=== PATIENT | male | born 1995 | race American Indian/Alaskan Native ===

== ENCOUNTER 2017-06-10 08:39 | Emergency (ER) | payer MEDICAID, OTHER ==
[2017-06-10] MEDS ORDERED: TYLENOL PO ONE (09:30)
[2017-06-10 10:45] LABS: Hemoglobin 14.6 gm/dl (11.8-15.2); Mean Corpuscular HGB Conc 32 % (32-34); Mean Corpuscular Hemoglobin 28 pg (28-32); Mean Corpuscular Volume 88 fl (84-94); Platelet Count 229 K/mm3 (140-440); Red Blood Count 5.13 M/mm3 (3.65-5.03); Red Cell Distribution Width 13.7 % (13.2-15.2)
--- NOTE | 2017-06-10 10:47 | XRay Report ---
ROUTINE CHEST, TWO VIEWS: HISTORY: Shortness of breath. The trachea, heart, mediastinal contour, lung chambers and bony thorax are unremarkable. IMPRESSION: Unremarkable chest x-ray.
[2017-06-10 10:49] LABS: BUN/Creatinine Ratio 13; Blood Urea Nitrogen 10 mg/dL (9-20); Calcium 8.9 mg/dL (8.4-10.2); Hemolysis Index 71
[2017-06-10 11:26] LABS: Band Neutrophils # (Manual) 4.6 K/mm3; Basophils % (Manual) 0 % (0.0-1.8); Eosinophils % (Manual) 0 % (0.0-4.3); RBC Morphology Normal; Total Cells Counted 100
[2017-06-10 11:27] LABS: Platelet Estimate Consistent w Auto
[2017-06-10] MEDS ORDERED: TORADOL IV ONE (12:31)
[2017-06-10] MEDS ORDERED: NACL 0.9% 1000 ML 1,000 ML IV ONE (12:32)
--- NOTE | 2017-06-10 12:38 | Emergency Department Report ---
ED Abdominal Pain HPI - General Chief Complaint: Fever Stated Complaint: SICK Time Seen by Provider: 06/10/17 12:25 Source: patient Mode of arrival: Ambulatory Limitations: No Limitations - History of Present Illness Initial Comments: Patient is 21 years old male presented to the ER with chief complaint of fever abdominal pain mainly to the left lower quadrant associated with diarrhea. Patient denied any nausea or vomiting. He also complaining of generalized body ache. Denied any urinary symptoms. Patient denied headache or stiff neck. MD Complaint: abdominal pain -: This morning Location: LLQ Radiation: none Migration to: no migration Severity: moderate Severity scale (0 -10): 6 Quality: sharp Associated Symptoms: diarrhea - Related Data Home Medications Medication Instructions Recorded Confirmed Last Taken No Known Home Medications [No 05/24/16 05/24/16 Unknown Reported Home Medications] Allergies Allergy/AdvReac Type Severity Reaction Status Date / Time No Known Allergies Allergy Unverified 05/24/16 18:49 ED Review of Systems ROS: Stated complaint: SICK Other details as noted in HPI Comment: All other systems reviewed and negative Constitutional: chills, fever Respiratory: denies: cough, orthopnea, shortness of breath, SOB with exertion, SOB at rest Cardiovascular: palpitations. denies: chest pain Gastrointestinal: abdominal pain, diarrhea. denies: nausea, vomiting, constipation, hematemesis, melena, hematochezia Skin: denies: rash, lesions, change in color Neurological: denies: headache, weakness, numbness, paresthesias, confusion ED Past Medical Hx - Past Medical History Previous Medical History?: No - Surgical History Past Surgical History?: No - Social History Smoking Status: Never Smoker Substance Use Type: None - Medications Home Medications: Home Medications Medication Instructions Recorded Confirmed Last Taken Type No Known Home Medications [No 05/24/16 05/24/16 Unknown History Reported Home Medications] ED Physical Exam - General Limitations: No Limitations General appearance: alert, in no apparent distress - Head Head exam: Present: atraumatic, normocephalic, normal inspection - Eye Eye exam: Present: normal appearance, PERRL - ENT ENT exam: Present: normal exam, normal orophraynx, mucous membranes dry. Absent : TM's normal bilaterally, normal external ear exam - Neck Neck exam: Present: normal inspection, full ROM. Absent: tenderness, meningismus, lymphadenopathy, thyromegaly - Respiratory Respiratory exam: Present: normal lung sounds bilaterally. Absent: respiratory distress, wheezes, rales, rhonchi, chest wall tenderness, accessory muscle use, decreased breath sounds, prolonged expiratory - Cardiovascular Cardiovascular Exam: Present: tachycardia. Absent: systolic murmur, diastolic murmur - GI/Abdominal GI/Abdominal exam: Present: soft, tenderness (left lower quadrant tenderness). Absent: distended, guarding, rebound, rigid, normal bowel sounds, diminished bowel sounds, organomegaly, mass, bruit, pulsatile mass, hernia - Extremities Exam Extremities exam: Present: normal inspection, full ROM, normal capillary refill - Back Exam Back exam: Present: normal inspection, full ROM. Absent: tenderness, CVA tenderness (R), CVA tenderness (L), muscle spasm, paraspinal tenderness, vertebral tenderness - Neurological Exam Neurological exam: Present: alert, oriented X3, CN II-XII intact, normal gait, reflexes normal. Absent: motor sensory deficit - Skin Skin exam: Present: warm, intact, normal color. Absent: cyanosis, diaphoretic, erythema ED Course Vital Signs 06/10/17 06/10/17 06/10/17 09:24 09:36 12:12 Temperature 102.3 F H 99.6 F Pulse Rate 118 H Respiratory 22 22 Rate Blood Pressure 130/76 O2 Sat by Pulse 100 Oximetry - Reevaluation(s) Reevaluation #1: 06/10/17 14:40 Patient stated that he is feeling much better. Fever resolved. Patient had one episode of diarrhea. No nausea no vomiting. Abdominal pain resolved. I advised patient to follow-up with his primary care physician for further management. ED Medical Decision Making - Lab Data Result diagrams: 06/10/17 10:30 06/10/17 09:50 - Radiology Data Radiology results: report reviewed Referring Physician: ED DOC Patient Name: LALO GROVER Date of : 1995 Sex: Male Report Date: 2017-06-10 Report Status: Finalized Findings [facility] [address] [place] [address] XRay Report Signed Patient: LALO GROVER MR#: [id number] : 1995 Acct:[id number] Age/Sex: 21 / M ADM Date: 06/10/17 Loc: ED Attending Dr: Ordering Physician: KARTHIK GALINDO MD Date of Service: 06/10/17 Procedure(s): XR chest routine 2V Accession Number(s): [id number] cc: ED MD JOSIE Fluoro Time In Minutes: ROUTINE CHEST, TWO VIEWS: HISTORY: Shortness of breath. The trachea, heart, mediastinal contour, lung chambers and bony thorax are unremarkable. IMPRESSION: Unremarkable chest x-ray. Transcribed By: TTR Dictated By: PASCUAL CHAMPAGNE JR, MD Electronically Authenticated By: PASCUAL CHAMPAGNE JR, MD Signed Date/Time: 06/10/171040 DD/ 104 TD/TT: 06/10/17 104 Referring Physician: AILIN RUEDA Patient Name: LAOL GROVER Date of : 1995 Sex: Male Report Date: 2017-06-10 Report Status: [place] [address] Cat Scan Report Signed Patient: LALO GROVER MR#: [id number] : 1995 Acct:[id number] Age/Sex: 21 / M ADM Date: 06/10/17 Loc: ED Attending Dr: Ordering Physician: AILIN RUEDA Date of Service: 06/10/17 Procedure(s): CT abdomen pelvis wo con Accession Number(s): [id number] cc: AILIN RUEDA CT ABDOMEN PELVIS WITHOUT CONTRAST: HISTORY: abdominal pain. COMPARISON: none. TECHNIQUE: Helical CT in 1.25mm intervals without IV contrast. Sagittal and coronal reconstructions. FINDINGS: Lung bases: Normal. Liver: Normal. Biliary system: Normal. Pancreas: Normal. Spleen: Normal. Kidneys/ureters/bladder: Normal. Adrenal glands: Normal. Aorta: Normal. Intestines: Unremarkable given no oral contrast was administered. Appendix: Normal. Ascites: None. Adenopathy: None. Musculoskeletal: Scoliosis. No bone lesion or fracture. IMPRESSION: Unremarkable CT scan of the abdomen and pelvis without contrast. Transcribed By: TTR Dictated By: PASCUAL CHAMPAGNE JR, MD Electronically Authenticated By: PASCUAL CHAMPAGNE JR, MD Signed Date/Time: 06/10/17 1352 DD/ 1351 TD/TT: 06/10/17 1352 Critical care attestation.: If time is entered above; I have spent that time in minutes in the direct care of this critically ill patient, excluding procedure time. ED Disposition Clinical Impression: Abdominal pain, Fever Disposition: - TO HOME OR SELFCARE Is pt being admited?: No Condition: Stable Instructions: Fever in Adults (ED), Abdominal Pain (ED) Referrals: PRIMARY CARE, [Primary Care Provider] - 3-5 Days
[2017-06-10] MEDS ORDERED: ZOSYN/NS 4.5GM/100ML 4.5 GM/100 ML VIAL IV ONE (13:00)
--- NOTE | 2017-06-10 13:57 | Cat Scan Report ---
CT ABDOMEN PELVIS WITHOUT CONTRAST: HISTORY: abdominal pain. COMPARISON: none. TECHNIQUE: Helical CT in 1.25mm intervals without IV contrast. Sagittal and coronal reconstructions. FINDINGS: Lung bases: Normal. Liver: Normal. Biliary system: Normal. Pancreas: Normal. Spleen: Normal. Kidneys/ureters/bladder: Normal. Adrenal glands: Normal. Aorta: Normal. Intestines: Unremarkable given no oral contrast was administered. Appendix: Normal. Ascites: None. Adenopathy: None. Musculoskeletal: Scoliosis. No bone lesion or fracture. IMPRESSION: Unremarkable CT scan of the abdomen and pelvis without contrast.
[2017-06-10 15:00] VITALS: BP 122/89
== END 2017-06-10 15:00 | disposition home or self-care (01) ==
LOC: ED 08:39
DX: R50.9 Fever, unspecified (principal); R10.32 Left lower quadrant pain
CPT/HCPCS: 36415; 71046; 74176; 80048; 85007; 85025; 87040; 87400; 93005; 93010; 96365; 96375; 99285; J1885; J2543; J7030

== ENCOUNTER 2018-08-11 12:12 | Emergency (ER) | payer SELFPAY ==
[2018-08-11 12:31] VITALS: BP 152/62
--- NOTE | 2018-08-11 12:32 | Emergency Department Report ---
Chief Complaint: Rectal Pain Stated Complaint: EDILMA DISCOMFOR,POSSIBLE HEMMROID Time Seen by Provider: 08/11/18 12:30 - HPI History of Present Illness: This is a 22 y.o. male that presents with rectal pain that is intermittent. He reports a history of hemorrhoids. - ROS Review of Systems: hemorrhoids - Exam Physical Exam: Vital Signs 08/11/18 12:29 Temperature 98.2 F Pulse Rate 74 Respiratory 18 Rate Blood Pressure 152/62 O2 Sat by Pulse 100 Oximetry MSE screening note: Focused history and physical exam performed. Due to findings the following was ordered: Fast track for further evaluation. ED Disposition for MSE Condition: Stable
--- NOTE | 2018-08-11 15:17 | Emergency Department Report ---
ED General Adult HPI - General Chief complaint: Rectal Pain Stated complaint: EDILMA DISCOMFOR,POSSIBLE HEMMROID Time Seen by Provider: 08/11/18 12:30 Source: patient Mode of arrival: Ambulatory Limitations: No Limitations - History of Present Illness Initial comments: This is a 22-year-old male nontoxic, well nourished in appearance, no acute signs of distress presents to the ED with c/o of acute or chronic hemorrhoids. Patient stated that this is intermittent in and came to the ER because of the pain. Patient denies any blood in stool. Denies any constipation. Denies any fever, chills, abdominal pain, nausea, vomiting, headache, stiff neck, chest pain or shortness of breath. Patient denies any drug allergies significant past medical history. -: month(s) Radiation: non-radiation Severity scale (0 -10): 3 Consistency: intermittent Improves with: none Worsens with: none Associated Symptoms: denies other symptoms. denies: confusion, chest pain, cough, diaphoresis, fever/chills, headaches, loss of appetite, malaise, nausea/vomiting, rash, seizure, shortness of breath, syncope, weakness Treatments Prior to Arrival: none - Related Data Previous Rx's Medication Instructions Recorded Last Taken Type Ciprofloxacin HCl [Ciprofloxacin 500 mg PO Q12H #20 tab 06/10/17 Unknown Rx TAB] PE/Shk Lvr/Mo/Pet,Wh [Preparation 28 gm GA BID 10 Days tube 08/11/18 Unknown Rx H] Allergies Allergy/AdvReac Type Severity Reaction Status Date / Time No Known Allergies Allergy Unverified 05/24/16 18:49 ED Review of Systems ROS: Stated complaint: EDILMA DISCOMFOR,POSSIBLE HEMMROID Other details as noted in HPI Constitutional: denies: chills, fever Eyes: denies: eye pain, eye discharge, vision change ENT: denies: ear pain, throat pain Respiratory: denies: cough, shortness of breath, wheezing Cardiovascular: denies: chest pain, palpitations Endocrine: no symptoms reported Gastrointestinal: denies: abdominal pain, nausea, diarrhea Genitourinary: denies: urgency, dysuria Musculoskeletal: denies: back pain, joint swelling, arthralgia Skin: denies: rash, lesions Neurological: denies: headache, weakness, paresthesias Psychiatric: denies: anxiety, depression Hematological/Lymphatic: denies: easy bleeding, easy bruising ED Past Medical Hx - Past Medical History Previous Medical History?: No - Surgical History Past Surgical History?: No - Social History Smoking Status: Never Smoker Substance Use Type: Alcohol, Marijuana - Medications Home Medications: Home Medications Medication Instructions Recorded Confirmed Last Taken Type Ciprofloxacin HCl [Ciprofloxacin 500 mg PO Q12H #20 tab 06/10/17 Unknown Rx TAB] PE/Shk Lvr/Mo/Pet,Wh [Preparation 28 gm GA BID 10 Days tube 08/11/18 Unknown Rx H] ED Physical Exam - General Limitations: No Limitations General appearance: alert, in no apparent distress - Head Head exam: Present: atraumatic, normocephalic - Neck Neck exam: Present: normal inspection, full ROM - GI/Abdominal GI/Abdominal exam: Present: soft, normal bowel sounds. Absent: distended, tenderness, guarding, rebound, rigid, diminished bowel sounds - Rectal Rectal exam: Present: normal inspection, normal rectal tone, hemorrhoids (reducible with no hemorrhage). Absent: decreased rectal tone, black stool, bloody stool, fecal impaction, mass, tenderness - Extremities Exam Extremities exam: Present: normal inspection, full ROM - Back Exam Back exam: Present: normal inspection, full ROM - Neurological Exam Neurological exam: Present: alert, oriented X3 - Psychiatric Psychiatric exam: Present: normal affect, normal mood - Skin Skin exam: Present: warm, dry, intact, normal color. Absent: rash ED Course Vital Signs 08/11/18 12:29 Temperature 98.2 F Pulse Rate 74 Respiratory 18 Rate Blood Pressure 152/62 O2 Sat by Pulse 100 Oximetry - Reevaluation(s) Reevaluation #1: 08/11/18 15:15 Patient is speaking in full sentences with no signs of distress noted. ED Medical Decision Making - Medical Decision Making 22-year-old male presents with hemorrhoids. Patient is stable and was examined by me. Patient was educated on sitz bath and had a performed. Patient discharged with Preparation H. He was also educated on constipation precautions and prevention. Patient was instructed to Follow-up with a primary care doctor in 3-5 days or if symptoms worsen and continue return to emergency room as soon as possible. At time of discharge, the patient does not seem toxic or ill in appearance. No acute signs of distress noted. Patient agrees to discharge treatment plan of care. No further questions noted by the patient. Critical care attestation.: If time is entered above; I have spent that time in minutes in the direct care of this critically ill patient, excluding procedure time. ED Disposition Clinical Impression: External hemorrhoid Disposition: DC- TO HOME OR SELFCARE Is pt being admited?: No Does the pt Need Aspirin: No Condition: Stable Instructions: Hemorrhoids (ED), Sitz Bath (GEN) Additional Instructions: Follow-up with a primary care doctor in 3-5 days or if symptoms worsen and continue return to emergency room as soon as possible. Prescriptions: PE/Shk Lvr/Mo/Pet,Wh [Preparation H] 28 gm GA BID 10 Days tube Referrals: [facility] MD BRITTA [Primary Care Provider] - 3-5 Days PRIMARY MD ANJELICA [Referring] - 3-5 Days KEZIA BLAKELY MD [Staff Physician] - 3-5 Days [facility] [Outside] - 3-5 Days [facility] [Outside] - 3-5 Days Forms: Work/School Release Form(ED)
== END 2018-08-11 16:07 | disposition home or self-care (01) ==
LOC: ED 12:12
DX: K64.4 Residual hemorrhoidal skin tags (principal); F12.10 Cannabis abuse, uncomplicated
CPT/HCPCS: 99282